=== PATIENT | female | born 1975 | race African-American/Black ===

== ENCOUNTER 2017-11-03 16:42 | Emergency (ER) | payer OTHER ==
[~2017-11-03] VITALS: Ht 165.1 cm; Wt 88.5 kg
[2017-11-03 16:50] VITALS: BP 158/97
[2017-11-03] MEDS ORDERED: LOMAIRA8 MG PO (16:52)
[2017-11-03 17:21] LABS: ABSOLUTE EOSINOPHILS 0.1 thou/uL (0.0-0.7); ABSOLUTE LYMPHOCYTES 2.4 thou/uL (0.8-5.3); ABSOLUTE MONOCYTES 0.3 thou/uL (0.0-1.2); ABSOLUTE NEUTROPHILS 4.5 thou/uL (1.6-8.1); BASOPHILS 0.2 %; EOSINOPHILS 2.1 %; HEMOGLOBIN 12.3 gm/dL (12.0-15.0); LYMPHOCYTES 32.2 %; MCH 28.7 pg (26.0-34.0); MCHC 32.4 g/dL (28.0-37.0); MCV 88.5 fL (80.0-100.0); MONOCYTES 3.9 %; MPV 7.2 fl. (7.2-11.1); NUCLEATED RBCS 0 /100WBC; PLATELET COUNT* 295 thou/uL (150-400); POLYS 61.6 %; RDW-CV 13.5 % (10.5-14.5); WBC 7.3 thou/uL (4.0-11.0)
[2017-11-03 17:30] LABS: ANION GAP 8 mmol/L (7-16); BUN 11 mg/dL (7-18); CALCIUM 8.6 mg/dL (8.5-10.1); CHLORIDE 103 mmol/L (98-107); CO2 28 mmol/L (21-32); CREATININE 0.8 mg/dL (0.6-1.3); GLUCOSE 87 mg/dL (70-99); POTASSIUM 3.5 mmol/L (3.5-5.1); SODIUM 139 mmol/L (136-145)
[2017-11-03 17:37] LABS: ALBUMIN 3.6 g/dL (3.4-5.0); ALKALINE PHOSPHATASE 65 U/L (46-116); LIPASE 145 U/L (73-393); SGOT 18 U/L (15-37); SGPT 25 U/L (30-65); TOTAL BILIRUBIN 0.2 mg/dL (<0.1-1.0); TOTAL PROTEIN 7.1 g/dL (6.4-8.2); TROPONIN-I LEVEL <0.06 ng/mL (<0.06)
[2017-11-03] MEDS ORDERED: PRILOSEC 20 MG20 MG PO (18:00)
[2017-11-03] MEDS ORDERED: PEPCID20 MG PO (18:00)
--- NOTE | 2017-11-05 12:34 | EKG ---
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
== END 2017-11-03 18:09 | disposition home or self-care (01) ==
LOC: M.ERS 16:42
PROVIDERS: Physician Assistant
DX: R07.89 Other chest pain (principal); J45.909 Unspecified asthma, uncomplicated; Z88.1 Allergy status to other antibiotic agents; Z88.2 Allergy status to sulfonamides; Z88.8 Allergy status to other drugs, medicaments and biological substances

== ENCOUNTER → 2018-09-24 | Outpatient (CLI) | payer BC ==
[~2018-09-24] MED LIST: LOMAIRA8 MG PO; PEPCID20 MG PO; PRILOSEC 20 MG20 MG PO
== END ==
LOC: M.ULTRA 07:44
DX: K59.00 Constipation, unspecified (principal); R10.11 Right upper quadrant pain

== ENCOUNTER → 2019-01-25 | Outpatient (CLI) | payer BC | LOC: M.MRI 06:45 | DX: S83.011A Lateral subluxation of right patella, initial encounter (principal); M17.11 Unilateral primary osteoarthritis, right knee; X58.XXXA Exposure to other specified factors, initial encounter; Y93.89 Activity, other specified; Y92.89 Other specified places as the place of occurrence of the external cause; Y99.8 Other external cause status ==